=== PATIENT | female | born 1940 | race Caucasian/White ===

== ENCOUNTER → 2016-12-07 | Outpatient (CLI) | payer MEDICARE, OTHER ==
[~2016-12-07] MED LIST: ADVIL200 MG PO; ALEVE220 MG PO; ASPIRIN LO-DOSE81 MG PO; BISOPROLOL-HCT1 EACH PO; FLEXERIL10 MG PO; LOTENSIN20 MG PO; LYRICA 50MG CAP50 MG PO; MULTI VITAMIN1 EACH PO; NEURONTIN300 MG PO; OXYCONTIN EXTEN10 MG PO; REGLAN10 MG PO; TRICOR 145 MG145 MG PO; TYLENOL325 MG PO; ULTRAM50 MG PO; ZIAC 10 MG10 MG PO
== END | disposition disaster alternative care site (69) ==
LOC: GRAD 08:20
DX: M25.552 Pain in left hip (principal); M16.11 Unilateral primary osteoarthritis, right hip; Z96.642 Presence of left artificial hip joint

== ENCOUNTER → 2016-12-15 | Day surgery (SDC) | payer MEDICARE, OTHER ==
[~2016-12-15] VITALS: Ht 162.6 cm; Wt 65.4 kg
--- NOTE | ~2016-12-15 | OR ---
PATIENT'S NAME: MILEY PIERRE [facility] AGE: 76 Y [address] ROOM: [place] [address] LOCATION: [place] ADMIT DATE: 12/15/2016 OR/Procedure Report DISCHARGE DATE: FAMILY PHYSICIAN: LETICIA MISTRY MD ATTENDING PHYSICIAN: LASHAWN RENEE SURGEON: Matt Azevedo CRNA SCOUTS: DATE OF PROCEDURE: 12/15/2016 FEMORAL NERVE INJECTION PROCEDURE The patient was referred to us by Dr. Lashawn Renee. Ms. Pierre is a patient of Dr. Renee, who was sent to us for a left femoral nerve injection for potential femoral nerve entrapment. Risks, benefits, and alternatives were discussed especially quadriceps function for the day and the potential risks of fall, although no local anesthetic was utilized in the femoral nerve canal. The patient was positioned supine in the bed. A sterile prep and drape with chlorhexidine was then done, at which time 1% lidocaine skin wheal was made in the left groin. Ultrasound guidance was utilized to 90 mm insulated. Stimuplex needle was advanced without difficulty, upon which a patellar quadriceps twitch was noted at less than 0.5 milliamps. Upon patellar quadriceps function twitch notation, an injection of 40 mg of Depo- Medrol as well as 5 mL of preservative free normal saline was injected without difficulty. Ultrasound pictures will be noted on the chart. The patient tolerated the procedure well. She will ambulate prior to dismissal, otherwise dismissal will be upon discharge criteria. The patient had no further questions and I will follow up in approximately 2 days with the patient as well as she will be following up with Dr. Renee. PREOPERATIVE DIAGNOSIS: Left femoral nerve entrapment. POSTOPERATIVE DIAGNOSIS: Left femoral nerve entrapment. PROCEDURE: Femoral nerve injection. ESTIMATED BLOOD LOSS: Zero. SPECIMEN: Zero. The patient tolerated the procedure well and was sent home with no further questions. PATIENT'S NAME: MILEY PIERRE [facility] AGE: 76 Y [address] ROOM: [place] [address] LOCATION: [place] ADMIT DATE: 12/15/2016 OR/Procedure Report DISCHARGE DATE: FAMILY PHYSICIAN: LETICIA MISTRY MD ATTENDING PHYSICIAN: LASHAWN RENEE JILL ROMERO/france /[id number] d: 12/15/162004 t: 12/18/16 0735, OPERATIVE SUMMARY
== END ==
LOC: GPOC 12-14 16:00 → GSDC 11:50
PROC: 3E0T3BZ Introduction of Anesthetic Agent into Peripheral Nerves and Plexi, Percutaneous Approach (ICD-10-PCS; principal; 2016-12-15)
DX: G57.12 Meralgia paresthetica, left lower limb (principal); E78.00 Pure hypercholesterolemia, unspecified; I10 Essential (primary) hypertension; Z96.642 Presence of left artificial hip joint
CPT/HCPCS: J1030